=== PATIENT | male | born 1990 | race Caucasian/White ===

== ENCOUNTER 2016-05-08 16:18 | Emergency (ER) | payer SELFPAY ==
[2016-05-08] MEDS ORDERED: NS 0.9% 1000 ML* 1,000 ML BOLUS ONE ×2 (17:21→18:19)
[2016-05-08] MEDS ORDERED: Ondansetron INJ* 2 MG/ML VIAL IV ONE (17:22)
--- NOTE | 2016-05-08 17:27 | UC ---
Abdominal Pain Male HPI - HPI Summary HPI Summary: 26 yo male with the onset of nausea/diarrhea/fever and headache which started yesterday AM Since 11 pm he guesses he has had 20 episodes of watery diarrhea after the diarrhea he has about 10-20 minutes of crampy lower abd pain has be taking sips of water decreased urine out put no recent travel no antibiotics does not suspect any bad food - History of Current Complaint Chief Complaint: UCAbdominalPain Stated Complaint: FEVER DIARRHEA HEADACHE Time Seen by Provider: 05/08/16 17:12 Hx Obtained From: Patient Onset/Duration: Gradual Onset, Lasting Days Timing: Constant Severity Initially: Mild Severity Currently: Moderate Pain Intensity: 8 - headache Pain Scale Used: 0-10 Numeric Location: Diffuse Radiates: No Character: Cramping Aggravating Factor(s):: Nothing Alleviating Factor(s): Spontaneous Resolution Associated Signs And Symptoms: Positive: Fever, Decreased Appetite, Nausea, Diarrhea - Allergies/Home Medications Allergies/Adverse Reactions: Allergies Allergy/AdvReac Type Severity Reaction Status Date / Time No Known Allergies Allergy Verified 05/08/16 17:02 Home Medications: Home Medications [id number] [Night Time Cold & Flu Rel 15-6.25-325 mg] 2 cap PO ONCE PRN 05/08/16 [History Confirmed 05/08/16] Diphenhydramine-Phenylephrine- [Theraflu Severe Cold & Co] 1 pow PO ONCE PRN 12/15 [History Confirmed 05/08/16] PMH/Surg Hx/FS Hx/Imm Hx Previously Healthy: Yes Endocrine History Of: Denies: Diabetes, Thyroid Disease Cardiovascular History Of: Denies: Cardiac Disorders, Hypertension Respiratory History Of: Denies: COPD, Asthma GI/ History Of: Denies: Ulcer - Surgical History Surgical History: Yes Surgery Procedure, Year, and Place: [facility] - Family History Known Family History: Positive: Hypertension Negative: Cardiac Disease - Social History Alcohol Use: Weekly Substance Use Type: None Smoking Status (MU): Heavy Every Day Tobacco Smoker Type: Cigarettes Amount Used/How Often: 1/2 PPD Length of Time of Smoking/Using Tobacco: 8 YRS Have You Smoked in the Last Year: Yes Review of Systems Constitutional: Fever, Chills, Fatigue Skin: Negative Eyes: Negative ENT: Negative Respiratory: Negative Cardiovascular: Negative Gastrointestinal: Abdominal Pain, Diarrhea Genitourinary: Negative Motor: Negative Neurovascular: Negative Musculoskeletal: Negative Neurological: Headache Psychological: Negative All Other Systems Reviewed And Are Negative: Yes Physical Exam Triage Information Reviewed: Yes Appearance: Well-Nourished, Ill-Appearing Vital Signs: Initial Vital Signs Temp 100.8 F 05/08/16 16:56 Pulse 97 05/08/16 16:56 Resp 14 05/08/16 16:56 BP 153/85 05/08/16 16:56 Pulse Ox 100 05/08/16 16:56 Eyes: Positive: Conjunctiva Clear ENT: Positive: Hearing grossly normal, Pharynx normal, TMs normal, Other: - dry mucous membranes. Negative: Nasal congestion, Nasal drainage, Tonsillar exudate , Trismus, Muffled/hoarse voice Neck: Positive: Supple, Nontender, No Lymphadenopathy Respiratory: Positive: Lungs clear, Normal breath sounds, No respiratory distress, No accessory muscle use Cardiovascular: Positive: RRR, No Murmur Abdomen Description: Positive: No Organomegaly. Negative: Nontender - tender LLQ>RLQ, CVA Tenderness (R), CVA Tenderness (L), Hepatomegaly, Pulsatile Mass, Splenomegaly Bowel Sounds: Positive: Present Musculoskeletal: Positive: Strength Intact, ROM Intact Neurological: Positive: Alert Psychological Exam: Normal Skin Exam: Normal Re-Evaluation - Re-Evaluation First Eval Re-Evaluation Time: 19:20 Change: Improved Comment: no abd pain/slightly improved headache/able to urinate Abd Pain Male Course/Dx - Differential Dx/Clinical Impression Provider Diagnoses: acute gastroenteritis. ? dysentary Discharge - Discharge Plan Condition: Stable Disposition: HOME Prescriptions: Ciprofloxacin TAB* [Cipro 500 MG TAB*] 500 mg PO BID #6 tab Promethazine TAB* [Phenergan TAB*] 25 mg PO Q6H PRN #8 tab PRN Reason: Nausea Patient Education Materials: Acute Diarrhea (ED) Referrals: Non Staff,Doctor [Primary Care Provider] - Additional Instructions: stool studies are pending bowel rest tonight tylenol for fever or pain phenergan for nausea (may cause drowsiness) recheck in ER for : new or worsening symptoms especially worsening or constant abd pain /vomiting/if you pass a lot of blood in your diarrhea/if still febrile after 48 hours If not improving you may need referral to a specialist recheck in 2-3 days if not completely better
[2016-05-08] MEDS ORDERED: Ketorolac INJ* 30 MG/ML 1 ML VIAL IV ONE (18:20)
[2016-05-08] MEDS ORDERED: Acetaminophen TAB* 325 MG PO ONE (19:30)
[2016-05-08] MEDS ORDERED: HYDROcodone/ACETAMIN 5-325 MG* 1 TAB PO ONE (19:30)
[2016-05-08 19:36] VITALS: BP 150/76
== END 2016-05-08 19:54 | disposition home or self-care (01) ==
LOC: UCCORT 16:18
DX: K52.9 Noninfective gastroenteritis and colitis, unspecified (principal); F17.210 Nicotine dependence, cigarettes, uncomplicated
CPT/HCPCS: 81003; 87045; 87046; 87077; 87328; 87329; 87899; 96361; 96374; 96375; 99212; A9270-GY; G0463; J1885; J2405

== ENCOUNTER 2017-06-15 14:50 | Emergency (ER) | payer BC ==
[2017-06-15 15:43] VITALS: BP 156/83
--- NOTE | 2017-06-15 16:15 | UC ---
Elbow Pain - HPI Summary HPI Summary: 27 yo male slipped and landed on his left elbow 2 days ago wrestling with friend worn a sweat top bleeding over olceranon he is right handed pain with full extension pain with flexion >90 degrees has not taken any meds - History of Current Complaint Chief Complaint: UCUpperExtremity Stated Complaint: LFT ELBOW INJURY Time Seen by Provider: 06/15/17 15:59 Hx Obtained From: Patient Onset/Duration: Days Severity Initially: Moderate Severity Currently: Moderate Pain Intensity: 6 Pain Scale Used: 0-10 Numeric Location Of Pain: Is Discrete @ Character: Dull, Aching, Throbbing Aggravating Factor(s): Movement, Other - bumping elbow Alleviating Factor(s): Rest Associated Signs And Symptoms: Positive: Swelling - Allergies/Home Medications Allergies/Adverse Reactions: Allergies Allergy/AdvReac Type Severity Reaction Status Date / Time No Known Allergies Allergy Verified 06/15/17 15:39 PMH/Surg Hx/FS Hx/Imm Hx Previously Healthy: Yes - Surgical History Surgical History: Yes Surgery Procedure, Year, and Place: [facility] - Family History Known Family History: Positive: Hypertension Negative: Cardiac Disease - Social History Alcohol Use: Occasionally Substance Use Type: None Smoking Status (MU): Heavy Every Day Tobacco Smoker Type: Cigarettes Amount Used/How Often: 1/2 PPD Length of Time of Smoking/Using Tobacco: 8 YRS Have You Smoked in the Last Year: Yes Review of Systems Constitutional: Negative Skin: Negative Eyes: Negative ENT: Negative Respiratory: Negative Cardiovascular: Negative Gastrointestinal: Negative Genitourinary: Negative Motor: Negative Neurovascular: Negative Musculoskeletal: Arthralgia Neurological: Negative Psychological: Negative Is Patient Immunocompromised?: No All Other Systems Reviewed And Are Negative: Yes Physical Exam Triage Information Reviewed: Yes Appearance: Well-Appearing, No Pain Distress, Well-Nourished Vital Signs: Initial Vital Signs Temp 99 F 06/15/17 15:39 Pulse 98 06/15/17 15:39 Resp 16 06/15/17 15:39 BP 156/83 06/15/17 15:39 Pulse Ox 99 06/15/17 15:39 Vital Signs Reviewed: Yes Eyes: Positive: Conjunctiva Clear ENT: Positive: Pharynx normal. Negative: Nasal congestion, Nasal drainage, Muffled voice, Hoarse voice Neck: Positive: Supple, Nontender Respiratory: Positive: Lungs clear, Normal breath sounds, No respiratory distress, No accessory muscle use Cardiovascular: Positive: RRR Musculoskeletal: Positive: ROM Limited @ - left elbow, Edema @ - left elbow Neurological: Positive: Alert Psychological Exam: Normal Skin Exam: Other - abrasion (quarter sized) just proximal to olecranon Diagnostics - Radiology No standard instances Xray Interpretation: No Acute Changes Radiology Interpretation Completed By: Radiologist Elbow Pain Course/Dx - Course Course Of Treatment: warned re potential for septic olecranon bursitis to develop. advised to recheck for any concerns of infection - Differential Dx/Diagnosis Provider Diagnoses: left elbow contusion/left elbow abrasion Discharge - Sign-Out/Discharge Documenting (check all that apply): Discharge - Discharge Plan Condition: Stable Disposition: HOME Prescriptions: Cephalexin CAP* [Keflex CAP*] 500 mg PO TID #15 cap Patient Education Materials: Pulmonary Contusion (ED), Abrasion (ED) Referrals: Non Staff,Doctor [Primary Care Provider] - Additional Instructions: gently clean abrasion twice daily with soap and water antibiotic ointment (I like aquaphor healing ointment or polysporin) aleve 1-2 twice daily with food for pain recheck for redness /concerns of infection you may want to try to find an elbow pad or guard to wear at work - Billing Disposition and Condition Condition: STABLE Disposition: HOME
--- NOTE | 2017-06-15 16:42 | RAD ---
INDICATION: Left elbow injury. TECHNIQUE: 4 views of the left elbow were obtained. FINDINGS: The bones are in normal alignment. No joint effusion or fracture is seen. Joint spaces appear maintained. IMPRESSION: NO EVIDENCE FOR FRACTURE.
== END 2017-06-15 16:55 | disposition home or self-care (01) ==
LOC: UCCORT 14:50
DX: S50.02XA Contusion of left elbow, initial encounter (principal); F17.210 Nicotine dependence, cigarettes, uncomplicated; W01.0XXA Fall on same level from slipping, tripping and stumbling without subsequent striking against object, initial encounter; Y92.9 Unspecified place or not applicable
CPT/HCPCS: 99212; G0463